=== PATIENT | male | born 1950 | race African-American/Black ===

== ENCOUNTER 2019-12-10 14:59 | Inpatient (IN) ==
[2019-12-10 15:21] VITALS: BMI 30.2
--- NOTE | 2019-12-10 15:44 | DR.EXTPAIN ---
HPI Time seen Time Seen by Provider: 12/10/19 15:41 PCP Primary Care Physician: SHENA HPI Comment HPI Comment: Patient sent from alf for cellulitis of right elbow. Facility physician states that he has been treating the infection with IM Rocephin and despite this, wound has enlarged. Patient denies any open cut that led to infection, states that it spontaneously occurred 4-5 days ago. Notes that there had been purulent drainage from the area. Complaint/Symptoms Chief Complaint:: PT IS NOTED TO HAVE RT ELBOW CELLULITIS. PT STATES HE NOTED TO HAVE A BUMP ON IT AND IT BEGAN TO SWELL. NURSE PRACTIONER HAS GIVEN ANTIBIOTICS IM ROCEPHIN OVER THE PAST 4 DAYS. COVID-19 Coronavirus risk:travel/contact w/high risk person: No Has patient experienced Coronavirus symptoms: No Source History Provided: Patient Mode of arrival Mode of Arrival: Wheelchair Timing Onset of Chief Complaint: 12/06/19 PMH PMH Past Medical History: Yes Past Medical History: Asthma, COPD, Diabetes and Hypertension Past Surgical History: Yes Surgical History: Angioplasty/Stents Family History History of Family Medical Conditions: No Social History Does any household member use tobacco: No Alcohol Use: None Do you use any recreational Drugs:: No Lives With: Other Travel Risk Coronavirus risk:travel/contact w/high risk person: No Has patient experienced Coronavirus symptoms: No Infectious screening In the last 2 months have you had wt loss of >10#?: NO Have you had fever, night sweats or hemotysis?: No Have you traveled outside the country in the last 6 months?: No Isolation: Standard ROS Review of Systems Musculoskeletal: Joint Swelling, Right and Elbow Integumentary: Change in Color (redness) and Wound All Other Systems: Reviewed and Negative PE Vital Signs Vitals: Pulse Rate 82 Respiratory Rate 18 Blood Pressure 126/67 O2 Sat by Pulse Oximetry 98 General Limitations: No Limitations Head Head Exam: Normal Inspection, Atraumatic and Normocephalic Eyes Eye exam: Normal Appearance and EOMI Chest Chest Inspection: Normal Inspection and Symmetric Chest Wall Rise Cardiovascular Cardiovascular Exam: Regular Rate, Normal Rhythm and Normal Heart Sounds Abdominal Exam Abdominal Exam: Normal Inspection, Normal Bowel Sounds and Soft Extremities Extremities Exam: Tenderness, Edema and Joint Swelling Upper Extremities Elbow Exam: Tenderness and Erythema Neurological Neurological Exam: Alert and Oriented X3 Psychiatric Psychiatric Exam: Normal Affect and Normal Mood Skin Skin Exam: Warm, Dry and Erythema (right elbow) COURSE Treatment Treatment: Spoke with Dr. Bergman who has accepted patient for admission. Patient has failed outpatient antibiotic therapy. ROR Labs Reviewed Result Diagrams: 12/10/19 16:05 12/10/19 15:44 Laboratory: WBC 3.5 X10^3/uL (3.6-10.0) L 12/10/19 16:05 RBC 3.56 X10^6/uL (4.7-6.0) L 12/10/19 16:05 Hgb 10.4 g/dL (13.5-18.0) L 12/10/19 16:05 Hct 30.7 % (42.0-54.0) L 12/10/19 16:05 MCV 86.1 fL (80.0-100.0) 12/10/19 16:05 MCH 29.1 pg (27.0-34.0) 12/10/19 16:05 MCHC 33.9 g/dL (33.0-35.0) 12/10/19 16:05 RDW 16.5 % (11.6-16.5) 12/10/19 16:05 Plt Count 230 X10^3/uL (150.0-450.0) 12/10/19 16:05 Plt Count Comment Adequate (ADEQUATE) 12/10/19 16:05 MPV 10.3 fL (7.4-11.0) 12/10/19 16:05 Neut % (Auto) 36.8 % (42.0-75.0) L 12/10/19 16:05 Lymph % (Auto) 48.7 % (21.0-51.0) 12/10/19 16:05 [place] % (Auto) 13.2 % (0.0-13.0) H 12/10/19 16:05 Eos % (Auto) 0.6 % (0.9-2.9) L 12/10/19 16:05 Baso % (Auto) 0.7 % (0.2-1.0) 12/10/19 16:05 Neut # (Auto) 1.3 x10^3/uL (2.2-4.8) L 12/10/19 16:05 Lymph # (Auto) 1.7 X10^3/uL (1.3-2.9) 12/10/19 16:05 [place] # (Auto) 0.5 x10^3/uL (0.3-0.8) 12/10/19 16:05 Eos # (Auto) 0.0 x10^3/uL (0.0-0.2) 12/10/19 16:05 Baso # (Auto) 0.0 X10^3/uL (0.0-0.1) 12/10/19 16:05 Absolute Nucleated RBC 0.0 /100WBC 12/10/19 16:05 Total Counted 50 12/10/19 16:05 Neutrophils % (Manual) 34 % (39-76) L 12/10/19 16:05 Lymphocytes % (Manual) 48 % (13-43) H 12/10/19 16:05 Monocytes % (Manual) 18 % (4-9) H 12/10/19 16:05 Plt Morphology Comment Normal (NORMAL) 12/10/19 16:05 RBC Morphology Abnormal (NORMAL) 12/10/19 16:05 Hypochromasia Slight A 12/10/19 16:05 Anisocytosis 1+ A 12/10/19 16:05 Sodium 135 mmol/L (136-145) L 12/10/19 15:44 Corrected Sodium 136 mmol/L (136-145) 12/10/19 15:44 Potassium 4.8 mmol/L (3.5-5.1) 12/10/19 15:44 Chloride 102 mmol/L (98-107) 12/10/19 15:44 Carbon Dioxide 27.1 mmol/L (21-32) 12/10/19 15:44 BUN 21 mg/dL (7-18) H 12/10/19 15:44 Creatinine 1.71 mg/dL (0.70-1.30) H 12/10/19 15:44 Est GFR (MDRD) Af Amer 51 (>60) L 12/10/19 15:44 Est GFR (MDRD) Non-Af 43 (>60) L 12/10/19 15:44 Glucose 141 mg/dL (65-99) H 12/10/19 15:44 Calcium 9.5 mg/dL (8.5-10.1) 12/10/19 15:44 Corrected Calcium TNP 12/10/19 15:44 Total Bilirubin 0.30 mg/dL (0.2-1.0) 12/10/19 15:44 AST 33 Units/L (15-37) 12/10/19 15:44 ALT 40 Units/L (12-78) 12/10/19 15:44 Alkaline Phosphatase 143 Units/L (46-116) H 12/10/19 15:44 Total Protein 9.9 g/dL (6.4-8.2) H 12/10/19 15:44 Albumin 3.7 g/dL (3.4-5.0) 12/10/19 15:44 Globulin 6.2 g/dL (2.5-4.5) H 12/10/19 15:44 Albumin/Globulin Ratio 0.6 Ratio (1.1-2.1) L 12/10/19 15:44 Other Results Comments: HISTORY CELLULITIS, PAIN HX- ASTHMA, COPD, HTN, DM. SX- STENTS STUDY ELBOW, RIGHT COMPARISON FINDINGS No acute cortical disruption or dislocation is identified. No significant joint space effusion can be seen. The radial head is unremarkable in its appearance. There is a moderate-sized olecranon spur. Soft tissue swelling is seen over the dorsal aspect of the distal humerus and the dorsal aspect of the proximal ulna IMPRESSION Negative exam other than moderate-sized olecranon spur. There is soft tissue swelling over the dorsal aspect of the elbow. Electronically signed by: YUMI INTERIANO (Dec 10, 2019 16:23:41) Opioid Opioid Risk Tool Age (Brian box if 16-45): No History of Preadolescent Sexual Abuse: No Total: 0 Total Score Risk Category: Low Risk Copyright: Cam PASCAL predicting aberrant behaviors
[2019-12-10 16:18] LABS: BASOPHILS % (AUTO) 0.7 % (0.2-1.0); EOSINOPHILS % (AUTO) 0.6 % (0.9-2.9); HEMATOCRIT 30.7 % (42.0-54.0); HEMOGLOBIN 10.4 g/dL (13.5-18.0); LYMPHOCYTES # (AUTO) 1.7 X10^3/uL (1.3-2.9); LYMPHOCYTES % (AUTO) 48.7 % (21.0-51.0); MEAN CORPUSCULAR HEMOGLOBIN 29.1 pg (27.0-34.0); MEAN CORPUSCULAR HGB CONC 33.9 g/dL (33.0-35.0); MEAN CORPUSCULAR VOLUME 86.1 fL (80.0-100.0); MEAN PLATELET VOLUME 10.3 fL (7.4-11.0); MONOCYTES # (AUTO) 0.5 x10^3/uL (0.3-0.8); MONOCYTES % (AUTO) 13.2 % (0.0-13.0); NEUTROPHILS # (AUTO) 1.3 x10^3/uL (2.2-4.8); NEUTROPHILS % (AUTO) 36.8 % (42.0-75.0); PLATELET COUNT 230 X10^3/uL (150.0-450.0); RED BLOOD COUNT 3.56 X10^6/uL (4.7-6.0); RED CELL DISTRIBUTION WIDTH 16.5 % (11.6-16.5); WHITE BLOOD COUNT 3.5 X10^3/uL (3.6-10.0)
--- NOTE | 2019-12-10 16:24 | RAD ---
HISTORYCELLULITIS, PAIN HX- ASTHMA, COPD, HTN, DM. SX- STENTSSTUDYELBOW, RIGHTCOMPARISONFINDINGSNo acute cortical disruption or dislocation is identified. No significant joint space effusion can be seen. The radial head is unremarkable in its appearance. There is a moderate-sized olecranon spur. Soft tissue swelling is seen over the dorsal aspect of the distal humerus and the dorsal aspect of the proximal ulnaIMPRESSIONNegative exam other than moderate-sized olecranon spur.There is soft tissue swelling over the dorsal aspect of the elbow.Electronically signed by: YUMI INTERIANO (Dec 10, 2019 16:23:41)
[2019-12-10 16:29] LABS: ALANINE AMINOTRANSFERASE 40 Units/L (12-78); ALBUMIN 3.7 g/dL (3.4-5.0); ALKALINE PHOSPHATASE 143 Units/L (46-116); ASPARTATE AMINO TRANSFERASE 33 Units/L (15-37); BLOOD UREA NITROGEN 21 mg/dL (7-18); CALCIUM 9.5 mg/dL (8.5-10.1); CARBON DIOXIDE 27.1 mmol/L (21-32); CHLORIDE 102 mmol/L (98-107); COR NA(FOR HYPERGLY) 136 mmol/L (136-145); CREATININE 1.71 mg/dL (0.70-1.30); SODIUM 135 mmol/L (136-145); TOTAL PROTEIN 9.9 g/dL (6.4-8.2); eGFR NON BLACK RACES 43 (>60)
[2019-12-10 17:03] LABS: ANISOCYTOSIS 1+; HYPOCHROMASIA SLIGHT; PLATELET MORPHOLOGY COMMENT NORMAL (NORMAL)
[2019-12-10] MEDS ORDERED: MORPHINE SULFATE INJ 2 MG INJ ONE (18:01)
[2019-12-10] MEDS ORDERED: NS 100 ML IV + SPIKE MINIBAG* 100 ML IV ONE (18:01)
[2019-12-10] MEDS ORDERED: ZOSYN VIAL 4.5 GRAMS IV ONE (18:01)
[2019-12-10] MEDS: ZOSYN VIAL 4.5 GRAMS 4.5 G in NS 100 ML IV + SPIKE MINIBAG* 100 ML IV ONE ×2 (18:06→18:17)
[2019-12-10] MEDS: MORPHINE SULFATE INJ 2 MG INJ IVP PRN ×2 (18:07→18:15)
[2019-12-10] MEDS ORDERED: NS 1000 ML 1,000 ML ONE (18:07)
[2019-12-10] MEDS: ZOSYN VIAL 4.5 GRAMS 4.5 G in NS 100 ML IV + SPIKE MINIBAG* 100 ML IV SCH ×2 (18:43→22:42)
[2019-12-10] MEDS: NS 1000 ML 1,000 ML IV SCH (22:41)
[2019-12-10] MEDS ORDERED: MILK OF MAGNESIA PO PRN (23:19)
[2019-12-10] MEDS ORDERED: COLACE CAP 100 MG PO PRN (23:19)
[2019-12-10] MEDS ORDERED: COLACE CAP 100 MG PO ONE (23:32)
[2019-12-11] MEDS: LIPITOR TAB 40 MG PO SCH (00:22)
[2019-12-11] MEDS: NS 1000 ML 1,000 ML IV SCH ×3 (05:03→22:24)
[2019-12-11] MEDS: ZOSYN VIAL 4.5 GRAMS 4.5 G in NS 100 ML IV + SPIKE MINIBAG* 100 ML IV SCH (05:04)
[2019-12-11 06:25] LABS: BASOPHILS % (AUTO) 0.9 % (0.2-1.0); EOSINOPHILS % (AUTO) 0.7 % (0.9-2.9); HEMATOCRIT 28.3 % (42.0-54.0); HEMOGLOBIN 9.7 g/dL (13.5-18.0); LYMPHOCYTES # (AUTO) 1.5 X10^3/uL (1.3-2.9); LYMPHOCYTES % (AUTO) 46.5 % (21.0-51.0); MEAN CORPUSCULAR HEMOGLOBIN 29.3 pg (27.0-34.0); MEAN CORPUSCULAR HGB CONC 34.2 g/dL (33.0-35.0); MEAN CORPUSCULAR VOLUME 85.6 fL (80.0-100.0); MEAN PLATELET VOLUME 10.2 fL (7.4-11.0); MONOCYTES # (AUTO) 0.6 x10^3/uL (0.3-0.8); MONOCYTES % (AUTO) 18.5 % (0.0-13.0); NEUTROPHILS # (AUTO) 1.1 x10^3/uL (2.2-4.8); NEUTROPHILS % (AUTO) 33.4 % (42.0-75.0); PLATELET COUNT 200 X10^3/uL (150.0-450.0); RED BLOOD COUNT 3.31 X10^6/uL (4.7-6.0); RED CELL DISTRIBUTION WIDTH 16.2 % (11.6-16.5); WHITE BLOOD COUNT 3.3 X10^3/uL (3.6-10.0)
[2019-12-11 06:47] LABS: ALANINE AMINOTRANSFERASE 44 Units/L (12-78); ALBUMIN 3.1 g/dL (3.4-5.0); ALKALINE PHOSPHATASE 142 Units/L (46-116); ASPARTATE AMINO TRANSFERASE 33 Units/L (15-37); BLOOD UREA NITROGEN 15 mg/dL (7-18); CALCIUM 8.7 mg/dL (8.5-10.1); CARBON DIOXIDE 24.2 mmol/L (21-32); CHLORIDE 102 mmol/L (98-107); COR CA(FOR HYPOALB) 9.4 mg/dL (8.5-10.1); COR NA(FOR HYPERGLY) 136 mmol/L (136-145); CREATININE 1.33 mg/dL (0.70-1.30); SODIUM 134 mmol/L (136-145); TOTAL PROTEIN 8.7 g/dL (6.4-8.2); eGFR NON BLACK RACES 57 (>60)
[2019-12-11] MEDS ORDERED: HumuLIN R SC PRN (07:51)
[2019-12-11] MEDS ORDERED: IMDUR PO ONE (08:16)
[2019-12-11] MEDS ORDERED: PLAVIX ONE (08:16)
[2019-12-11] MEDS ORDERED: APRESOLINE TAB 25 MG ONE (08:16)
[2019-12-11] MEDS ORDERED: ASPIRIN 81 MG CHEWTAB ONE (08:16)
[2019-12-11] MEDS: HumuLIN 70/30 (NovoLIN 70/30) SC SCH ×2 (08:30→21:21)
[2019-12-11] MEDS: PLAVIX PO SCH (08:30)
[2019-12-11] MEDS: IMDUR PO SCH (08:30)
[2019-12-11] MEDS: ASPIRIN 81 MG CHEWTAB PO SCH (08:30)
[2019-12-11] MEDS: APRESOLINE TAB 25 MG PO SCH ×2 (08:30→21:20)
[2019-12-11] MEDS ORDERED: HumuLIN 70/30 (NovoLIN 70/30) SC SCH (09:00)
[2019-12-11] MEDS ORDERED: PHARMACY CONSULT - VANCOMYCIN XX SCH (10:00)
[2019-12-11] MEDS: VANCOMYCIN HCL VIAL 1.25 G 1.25 G in NS 250 ML IV 250 ML IV SCH ×2 (11:09→21:23)
--- NOTE | 2019-12-11 11:48 | DR.H&P ---
H&P History & Physical for Day of: H&P Date: 12/11/19 Chief Complaint Chief Complaint: right elbow swelling and redness Allergies Allergies Allergy/AdvReac Type Severity Reaction Status Date / Time Tetracyclines AdvReac Verified 12/10/19 15:36 History of Present Illness History of Present Illness: Mr. Ford is a 69y/o male with a PMH of MRSA skin infections, CAD s/p PCI in 2011, DM presented with right elbow swelling and drainage. Patient states it started with a small area of redness on his elbow a week ago. It started to get large with more pain and swelling. He noticed drainage over the weekend. He did see a doctor in retirement and was given Rocephin IM x 2 and oral antibiotics but the redness and drainage kept getting worse so he was brought to the ED. He denies any trauma or injury to the arm. Denies fever or chills. ED work up - Elbow XR: soft tissue swelling noted - Labs: WBC 3.3 Hgb: 9.7 Cr: 1.71 down to 1.33 Patient was started on IV zosyn, cultures were obtained Plan: Rod add Vanc due to hx of MRSA, continue Zosyn. Follow wound and blood cultures. Resume home medications. Continue gentle hydration. Consult Dr. Lopez to eval if he needs I&D. Past Medical History Past Medical History: Asthma, COPD, Diabetes and Hypertension Past Surgical History Surgical History: Angioplasty/Stents and Ortho Surgery Family History Family Medical History: Diabetes Mellitus, [place], Coronary Artery Disease, Heart Failure and Hypertension Social History Does patient currently use any type of tobacco product: No Have you used tobacco products in the last 12 months: No Type of Tobacco Use: None Does any household member use tobacco: No Alcohol Use: None Drug Use: None Prescription drug monitoring program results: PDMP reviewed and no concerns identified Medications Home Medications: Tetracyclines Adverse Reaction (Verified 12/10/19 15:36) CONTINUE taking the following medications amitriptyline 50 mg PO QHS 12/10/19 [History] aspirin 81 mg PO DAILY 12/10/19 [History] atorvastatin [Lipitor] 40 mg PO QHS 12/10/19 [History] carvedilol [Coreg] 25 mg PO BID 12/10/19 [History] clopidogrel [Plavix] 75 mg PO DAILY 12/10/19 [History] hydralazine 50 mg PO BID 12/10/19 [History] insulin NPH and regular human [Novolin 70/30 U-100 Insulin] 24 unit SUBCUT BID 12/10/19 [History] insulin regular human [Novolin R Regular U-100 Insuln] 1 sliding scale dose SUBCUT USEASDIRECTD 12/10/19 [History] isosorbide mononitrate 30 mg PO QAM 12/10/19 [History] levalbuterol tartrate [Xopenex HFA] 2 inh INHALATION Q6H 12/10/19 [History] loratadine [Claritin] 10 mg PO DAILY 12/10/19 [History] losartan [Cozaar] 50 mg PO BID 12/10/19 [History] nitroglycerin 0.4 mg SUBLINGUAL Q5M PRN 12/10/19 [History] sulfamethoxazole-trimethoprim [Bactrim DS] 1 tab PO BID 12/10/19 [History] terazosin 2 mg PO QHS 12/10/19 [History] triamcinolone acetonide 1 applic TOPICAL BID PRN 12/10/19 [History] Labs Result Diagrams: 12/11/19 05:50 12/11/19 05:50 Labs: Laboratory WBC 3.3 X10^3/uL (3.6-10.0) L 12/11/19 05:50 RBC 3.31 X10^6/uL (4.7-6.0) L 12/11/19 05:50 Hgb 9.7 g/dL (13.5-18.0) L 12/11/19 05:50 Hct 28.3 % (42.0-54.0) L 12/11/19 05:50 MCV 85.6 fL (80.0-100.0) 12/11/19 05:50 MCH 29.3 pg (27.0-34.0) 12/11/19 05:50 MCHC 34.2 g/dL (33.0-35.0) 12/11/19 05:50 RDW 16.2 % (11.6-16.5) 12/11/19 05:50 Plt Count 200 X10^3/uL (150.0-450.0) 12/11/19 05:50 Plt Count Comment Adequate (ADEQUATE) 12/10/19 16:05 MPV 10.2 fL (7.4-11.0) 12/11/19 05:50 Neut % (Auto) 33.4 % (42.0-75.0) L 12/11/19 05:50 Lymph % (Auto) 46.5 % (21.0-51.0) 12/11/19 05:50 [place] % (Auto) 18.5 % (0.0-13.0) H 12/11/19 05:50 Eos % (Auto) 0.7 % (0.9-2.9) L 12/11/19 05:50 Baso % (Auto) 0.9 % (0.2-1.0) 12/11/19 05:50 Neut # (Auto) 1.1 x10^3/uL (2.2-4.8) L 12/11/19 05:50 Lymph # (Auto) 1.5 X10^3/uL (1.3-2.9) 12/11/19 05:50 [place] # (Auto) 0.6 x10^3/uL (0.3-0.8) 12/11/19 05:50 Eos # (Auto) 0.0 x10^3/uL (0.0-0.2) 12/11/19 05:50 Baso # (Auto) 0.0 X10^3/uL (0.0-0.1) 12/11/19 05:50 Absolute Nucleated RBC 0.1 /100WBC 12/11/19 05:50 Total Counted 50 12/10/19 16:05 Neutrophils % (Manual) 34 % (39-76) L 12/10/19 16:05 Lymphocytes % (Manual) 48 % (13-43) H 12/10/19 16:05 Monocytes % (Manual) 18 % (4-9) H 12/10/19 16:05 Plt Morphology Comment Normal (NORMAL) 12/10/19 16:05 RBC Morphology Abnormal (NORMAL) 12/10/19 16:05 Hypochromasia Slight A 12/10/19 16:05 Anisocytosis 1+ A 12/10/19 16:05 Sodium 134 mmol/L (136-145) L 12/11/19 05:50 Corrected Sodium 136 mmol/L (136-145) 12/11/19 05:50 Potassium 4.1 mmol/L (3.5-5.1) 12/11/19 05:50 Chloride 102 mmol/L (98-107) 12/11/19 05:50 Carbon Dioxide 24.2 mmol/L (21-32) 12/11/19 05:50 BUN 15 mg/dL (7-18) 12/11/19 05:50 Creatinine 1.33 mg/dL (0.70-1.30) H 12/11/19 05:50 Est GFR (MDRD) Af Amer > 60 (>60) 12/11/19 05:50 Est GFR (MDRD) Non-Af 57 (>60) L 12/11/19 05:50 Glucose 189 mg/dL (65-99) H 12/11/19 05:50 POC Glucose (mg/dL) 94 mg/dL (65-99) 12/11/19 11:28 Calcium 8.7 mg/dL (8.5-10.1) 12/11/19 05:50 Corrected Calcium 9.4 mg/dL (8.5-10.1) 12/11/19 05:50 Total Bilirubin 0.20 mg/dL (0.2-1.0) 12/11/19 05:50 AST 33 Units/L (15-37) 12/11/19 05:50 ALT 44 Units/L (12-78) 12/11/19 05:50 Alkaline Phosphatase 142 Units/L (46-116) H 12/11/19 05:50 Total Protein 8.7 g/dL (6.4-8.2) H 12/11/19 05:50 Albumin 3.1 g/dL (3.4-5.0) L 12/11/19 05:50 Globulin 5.6 g/dL (2.5-4.5) H 12/11/19 05:50 Albumin/Globulin Ratio 0.6 Ratio (1.1-2.1) L 12/11/19 05:50 Review of Systems Constitutional: denies Fever, Sweats and Weakness Eyes: No Symptoms Reported ENT: No Symptoms Reported Respiratory: No Symptoms Reported Cardiovascular: No Symptoms Reported Gastrointestinal: No Symptoms Reported Genitourinary: No Symptoms Reported Musculoskeletal: Arm Pain Skin: Wound Neurological: No Symptoms Reported Physical Exam Vital Signs: Temperature 98.6 F Pulse Rate [Right Radial] 90 Pulse Rate 82 Respiratory Rate 18 Blood Pressure [Left Arm] 170/85 Blood Pressure 126/67 O2 Sat by Pulse Oximetry 97 Oriented: Normal Eyes: Normal Ear: Normal Nose: Normal Respiratory: Clear Throughout Cardiovascular: Normal Auscultation: Bowel Sounds: Normal Palpation: Normal Tenderness: Normal Skin: Red, Tender, Wound and Other (right elbow swelling with mild erythema noted, tenderness present. no drainage noted, does not appear to be fluctuant ) Musculoskeletal: Right and Arm Mood Description: Calm Affect: Normal Speech Pattern: Clear and Appropriate Assessment/Plan (1) Right elbow pain: Status: Acute (2) Cellulitis: Qualifiers: Laterality: right Site of cellulitis: extremity Site of cellulitis of extremity: upper extremity Qualified Code(s): L03.113 - Cellulitis of right upper limb Status: Acute (3) CAD (coronary artery disease): Qualifiers: Associated angina: with unspecified angina Coronary Disease-Associated Artery/Lesion type: unspecified vessel or lesion type [place] vs. transplanted heart: unspecified whether [place] or transplanted heart Qualified Code(s): I25.119 - Atherosclerotic heart disease of [place] coronary artery with unspecified angina pectoris Status: Acute (4) Diabetes: Qualifiers: Diabetes mellitus complication status: without complication Diabetes mellitus care home insulin use: with termite inspector use Diabetes mellitus type: type 2 Qualified Code(s): E11.9 - Type 2 diabetes mellitus without complications; Z79.4 - long term care social worker (current) use of insulin Status: Acute (5) HTN (hypertension): Qualifiers: Hypertension type: essential hypertension Qualified Code(s): I10 - Essential (primary) hypertension Status: Acute Review H&P Reviewed: Yes Patient was examined?: Yes
[2019-12-11] MEDS: ZOSYN VIAL 3.375 GRAMS 3.375 G in NS 100 ML IV + SPIKE MINIBAG* 100 ML IV SCH ×3 (12:14→22:24)
[2019-12-11] MEDS: SNACK - Diabetic Appropriate PO SCH (20:46)
[2019-12-11] MEDS: ELAVIL PO SCH (21:21)
[2019-12-11] MEDS: HYTRIN PO SCH (21:22)
[2019-12-12] MEDS: HYTRIN PO SCH ×2 (00:22→21:36)
[2019-12-12 06:19] LABS: BASOPHILS % (AUTO) 0.6 % (0.2-1.0); EOSINOPHILS % (AUTO) 0.8 % (0.9-2.9); HEMATOCRIT 29.6 % (42.0-54.0); LYMPHOCYTES # (AUTO) 1.6 X10^3/uL (1.3-2.9); LYMPHOCYTES % (AUTO) 49.5 % (21.0-51.0); MEAN CORPUSCULAR HEMOGLOBIN 29.5 pg (27.0-34.0); MEAN CORPUSCULAR HGB CONC 33.9 g/dL (33.0-35.0); MEAN CORPUSCULAR VOLUME 87.1 fL (80.0-100.0); MEAN PLATELET VOLUME 10.6 fL (7.4-11.0); MONOCYTES # (AUTO) 0.5 x10^3/uL (0.3-0.8); MONOCYTES % (AUTO) 15.2 % (0.0-13.0); NEUTROPHILS # (AUTO) 1.1 x10^3/uL (2.2-4.8); NEUTROPHILS % (AUTO) 33.9 % (42.0-75.0); PLATELET COUNT 218 X10^3/uL (150.0-450.0); RED CELL DISTRIBUTION WIDTH 16.7 % (11.6-16.5); WHITE BLOOD COUNT 3.3 X10^3/uL (3.6-10.0)
[2019-12-12 06:30] LABS: BLOOD UREA NITROGEN 10 mg/dL (7-18); CALCIUM 8.7 mg/dL (8.5-10.1); CARBON DIOXIDE 23.9 mmol/L (21-32); CHLORIDE 104 mmol/L (98-107); COR NA(FOR HYPERGLY) 140 mmol/L (136-145); CREATININE 1.23 mg/dL (0.70-1.30); SODIUM 138 mmol/L (136-145); eGFR NON BLACK RACES > 60 (>60)
[2019-12-12] MEDS: NS 1000 ML 1,000 ML IV SCH ×3 (06:49→22:47)
[2019-12-12] MEDS: ZOSYN VIAL 3.375 GRAMS 3.375 G in NS 100 ML IV + SPIKE MINIBAG* 100 ML IV SCH ×3 (06:49→21:39)
[2019-12-12] MEDS: APRESOLINE TAB 25 MG PO SCH ×2 (09:12→21:34)
[2019-12-12] MEDS: ASPIRIN 81 MG CHEWTAB PO SCH (09:12)
[2019-12-12] MEDS: IMDUR PO SCH (09:13)
[2019-12-12] MEDS: VANCOMYCIN HCL VIAL 1.25 G 1.25 G in NS 250 ML IV 250 ML IV SCH ×2 (09:14→21:44)
[2019-12-12] MEDS: HumuLIN 70/30 (NovoLIN 70/30) SC SCH ×2 (09:20→21:42)
[2019-12-12] MEDS: PLAVIX PO SCH (09:21)
--- NOTE | 2019-12-12 09:51 | PCM.PROG ---
Progress Note Progress Note for Day of Date of Exam: 12/12/19 Subjective Subjective: Patient seen at bedside, no overnight events noted. Patient states his elbow is slightly better, no drainage noted yesterday, redness is improving. Denies fever or chills, no N/V/D or abdominal pain. Patient was seen by Dr. Lopez yesterday, no need for I&D as most of it has drained already and he recommended to continue IV abx. Labs: WBC 3.3 Hgb 10 BUN/Cr: 12/18. Wounc Cx prelim Coag positive staph Plan: continue IV abx, monitor AM labs, resume home medications as renal function improved. Possible discharge tomorrow if elbow continues to improve. Past Medical Family Social History Past Med/Fam/Surg Hx: No changes since H&P Allergies: Allergies Tetracyclines Adverse Reaction (Verified 12/10/19 15:36) Review of Systems ROS: No change since H&P Vital Signs and I&O's Vital Signs: Temperature 98.0 F Pulse Rate [Right Radial] 94 Pulse Rate 82 Respiratory Rate 18 Blood Pressure [Right Arm] 182/86 Blood Pressure [Left Arm] 155/77 Blood Pressure 126/67 O2 Sat by Pulse Oximetry 96 Intake and Output: Intake & Output 12/09/19 12/10/19 12/11/19 12/12/19 23:59 23:59 23:59 23:59 Intake Total 500 / 500 2600 / 2600 750 / 750 Output Total 2000 / 2000 1200 / 1200 Balance 500 / 500 600 / 600 -450 / -450 Physical Exam Oriented: Normal Eyes: Normal Ear: Normal Nose: Normal Respiratory: Normal Cardiovascular: Normal Auscultation: Bowel Sounds: Normal Tenderness: Normal Skin: Red, Tender, Wound and Other (right elbow swelling with mild erythema improved, slight tenderness present. no drainage noted) Musculoskeletal: Right and Arm Mood Description: Calm Affect: Normal Speech Pattern: Clear and Appropriate Laboratory and Diagnostics Result Diagrams: 12/12/19 05:20 12/12/19 05:20 Labs: 12/11/19 01:38 Arm - Right Gram Stain - Final 12/11/19 01:38 Arm - Right Wound Culture - Preliminary Laboratory WBC 3.3 X10^3/uL (3.6-10.0) L 12/12/19 05:20 RBC 3.40 X10^6/uL (4.7-6.0) L 12/12/19 05:20 Hgb 10.0 g/dL (13.5-18.0) L 12/12/19 05:20 Hct 29.6 % (42.0-54.0) L 12/12/19 05:20 MCV 87.1 fL (80.0-100.0) 12/12/19 05:20 MCH 29.5 pg (27.0-34.0) 12/12/19 05:20 MCHC 33.9 g/dL (33.0-35.0) 12/12/19 05:20 RDW 16.7 % (11.6-16.5) H 12/12/19 05:20 Plt Count 218 X10^3/uL (150.0-450.0) 12/12/19 05:20 Plt Count Comment Adequate (ADEQUATE) 12/10/19 16:05 MPV 10.6 fL (7.4-11.0) 12/12/19 05:20 Neut % (Auto) 33.9 % (42.0-75.0) L 12/12/19 05:20 Lymph % (Auto) 49.5 % (21.0-51.0) 12/12/19 05:20 [place] % (Auto) 15.2 % (0.0-13.0) H 12/12/19 05:20 Eos % (Auto) 0.8 % (0.9-2.9) L 12/12/19 05:20 Baso % (Auto) 0.6 % (0.2-1.0) 12/12/19 05:20 Neut # (Auto) 1.1 x10^3/uL (2.2-4.8) L 12/12/19 05:20 Lymph # (Auto) 1.6 X10^3/uL (1.3-2.9) 12/12/19 05:20 [place] # (Auto) 0.5 x10^3/uL (0.3-0.8) 12/12/19 05:20 Eos # (Auto) 0.0 x10^3/uL (0.0-0.2) 12/12/19 05:20 Baso # (Auto) 0.0 X10^3/uL (0.0-0.1) 12/12/19 05:20 Absolute Nucleated RBC 0.4 /100WBC 12/12/19 05:20 Total Counted 50 12/10/19 16:05 Neutrophils % (Manual) 34 % (39-76) L 12/10/19 16:05 Lymphocytes % (Manual) 48 % (13-43) H 12/10/19 16:05 Monocytes % (Manual) 18 % (4-9) H 12/10/19 16:05 Plt Morphology Comment Normal (NORMAL) 12/10/19 16:05 RBC Morphology Abnormal (NORMAL) 12/10/19 16:05 Hypochromasia Slight A 12/10/19 16:05 Anisocytosis 1+ A 12/10/19 16:05 Sodium 138 mmol/L (136-145) 12/12/19 05:20 Corrected Sodium 140 mmol/L (136-145) 12/12/19 05:20 Potassium 3.9 mmol/L (3.5-5.1) 12/12/19 05:20 Chloride 104 mmol/L (98-107) 12/12/19 05:20 Carbon Dioxide 23.9 mmol/L (21-32) 12/12/19 05:20 BUN 10 mg/dL (7-18) 12/12/19 05:20 Creatinine 1.23 mg/dL (0.70-1.30) 12/12/19 05:20 Est GFR (MDRD) Af Amer > 60 (>60) 12/12/19 05:20 Est GFR (MDRD) Non-Af > 60 (>60) 12/12/19 05:20 Glucose 163 mg/dL (65-99) H 12/12/19 05:20 POC Glucose (mg/dL) 141 mg/dL (65-99) H 12/11/19 20:38 Calcium 8.7 mg/dL (8.5-10.1) 12/12/19 05:20 Corrected Calcium 9.4 mg/dL (8.5-10.1) 12/11/19 05:50 Total Bilirubin 0.20 mg/dL (0.2-1.0) 12/11/19 05:50 AST 33 Units/L (15-37) 12/11/19 05:50 ALT 44 Units/L (12-78) 12/11/19 05:50 Alkaline Phosphatase 142 Units/L (46-116) H 12/11/19 05:50 Total Protein 8.7 g/dL (6.4-8.2) H 12/11/19 05:50 Albumin 3.1 g/dL (3.4-5.0) L 12/11/19 05:50 Globulin 5.6 g/dL (2.5-4.5) H 12/11/19 05:50 Albumin/Globulin Ratio 0.6 Ratio (1.1-2.1) L 12/11/19 05:50 Plan (1) Right elbow pain: Status: Acute (2) Cellulitis: Status: Acute Qualifiers: Laterality: right Site of cellulitis: extremity Site of cellulitis of extremity: upper extremity Qualified Code(s): L03.113 - Cellulitis of right upper limb (3) CAD (coronary artery disease): Status: Acute Qualifiers: Associated angina: with unspecified angina Coronary Disease-Associated Artery/Lesion type: unspecified vessel or lesion type [place] vs. transplanted heart: unspecified whether [place] or transplanted heart Qualified Code(s): I25.119 - Atherosclerotic heart disease of [place] coronary artery with unspecified angina pectoris (4) Diabetes: Status: Acute Qualifiers: Diabetes mellitus complication status: without complication Diabetes mellitus custodial insulin use: with custodial use Diabetes mellitus type: type 2 Qualified Code(s): E11.9 - Type 2 diabetes mellitus without complications; Z79.4 - snf (current) use of insulin (5) HTN (hypertension): Status: Acute Qualifiers: Hypertension type: essential hypertension Qualified Code(s): I10 - Essential (primary) hypertension
[2019-12-12] MEDS ORDERED: COREG TAB 25 MG ONE (12:25)
[2019-12-12] MEDS: COREG TAB 25 MG PO SCH ×2 (12:25→21:35)
[2019-12-12] MEDS ORDERED: PHARMACY COMMENT IV NR (20:30)
[2019-12-12] MEDS ORDERED: PHARMACY CONSULT - VANCOMYCIN XX SCH (21:00)
[2019-12-12 21:25] LABS: CREATININE 1.44 mg/dL (0.70-1.30); VANCOMYCIN,TROUGH 15.1 ug/mL (15-20)
[2019-12-12] MEDS: SNACK - Diabetic Appropriate PO SCH (21:31)
[2019-12-12] MEDS: ELAVIL PO SCH (21:33)
[2019-12-12] MEDS: LIPITOR TAB 40 MG PO SCH (21:36)
[2019-12-13] MEDS: ZOSYN VIAL 3.375 GRAMS 3.375 G in NS 100 ML IV + SPIKE MINIBAG* 100 ML IV SCH (05:17)
[2019-12-13] MEDS: NS 1000 ML 1,000 ML IV SCH (05:17)
[2019-12-13 06:43] LABS: BASOPHILS % (AUTO) 1.1 % (0.2-1.0); EOSINOPHILS % (AUTO) 1.2 % (0.9-2.9); HEMATOCRIT 29.9 % (42.0-54.0); LYMPHOCYTES # (AUTO) 1.7 X10^3/uL (1.3-2.9); LYMPHOCYTES % (AUTO) 54.2 % (21.0-51.0); MEAN CORPUSCULAR HEMOGLOBIN 28.8 pg (27.0-34.0); MEAN CORPUSCULAR HGB CONC 33.3 g/dL (33.0-35.0); MEAN CORPUSCULAR VOLUME 86.5 fL (80.0-100.0); MEAN PLATELET VOLUME 10.2 fL (7.4-11.0); MONOCYTES # (AUTO) 0.4 x10^3/uL (0.3-0.8); MONOCYTES % (AUTO) 12.7 % (0.0-13.0); NEUTROPHILS % (AUTO) 30.8 % (42.0-75.0); PLATELET COUNT 224 X10^3/uL (150.0-450.0); RED BLOOD COUNT 3.46 X10^6/uL (4.7-6.0); RED CELL DISTRIBUTION WIDTH 16.9 % (11.6-16.5); WHITE BLOOD COUNT 3.2 X10^3/uL (3.6-10.0)
[2019-12-13 06:52] LABS: BLOOD UREA NITROGEN 9 mg/dL (7-18); CALCIUM 8.7 mg/dL (8.5-10.1); CARBON DIOXIDE 24.5 mmol/L (21-32); CHLORIDE 104 mmol/L (98-107); COR NA(FOR HYPERGLY) 139 mmol/L (136-145); CREATININE 1.22 mg/dL (0.70-1.30); SODIUM 138 mmol/L (136-145); eGFR NON BLACK RACES > 60 (>60)
[2019-12-13] MEDS: IMDUR PO SCH (08:39)
[2019-12-13] MEDS: ASPIRIN 81 MG CHEWTAB PO SCH (08:40)
[2019-12-13] MEDS: COREG TAB 25 MG PO SCH (08:40)
[2019-12-13] MEDS: PLAVIX PO SCH (08:40)
[2019-12-13] MEDS: APRESOLINE TAB 25 MG PO SCH (08:40)
[2019-12-13] MEDS: HumuLIN 70/30 (NovoLIN 70/30) SC SCH (08:41)
[2019-12-13] MEDS: VANCOMYCIN HCL VIAL 1.25 G 1.25 G in NS 250 ML IV 250 ML IV SCH (08:42)
--- NOTE | 2019-12-13 08:57 | W.DIS.FURT ---
Summary of Discharge Admission Diagnosis Patient Problems (Updated 12/11/19 @ 13:25 by Sonya Bergman) Right elbow pain (Acute) M25.521 HTN (hypertension) (Acute) I10 Diabetes (Acute) E11.9 CAD (coronary artery disease) (Acute) I25.10 Cellulitis (Acute) L03.90 Vital Signs: Vital Signs (72 hours) 12/10/19 15:02 12/10/19 18:07 12/10/19 18:15 Temperature Pulse Rate 82 Pulse Rate [Right Radial] Respiratory Rate 18 18 18 Blood Pressure 126/67 Blood Pressure [Left Arm] Blood Pressure [Right Arm] O2 Sat by Pulse Oximetry 98 12/10/19 18:27 12/10/19 18:45 12/10/19 20:00 Temperature 97.8 F Pulse Rate Pulse Rate [Right Radial] 92 H 87 Respiratory Rate 20 18 21 Blood Pressure Blood Pressure [Left Arm] 182/84 165/77 Blood Pressure [Right Arm] O2 Sat by Pulse Oximetry 96 98 12/11/19 00:00 12/11/19 04:00 12/11/19 08:00 Temperature 97.5 F L 97.1 F L 98.6 F Pulse Rate Pulse Rate [Right Radial] 87 84 90 Respiratory Rate 22 23 18 Blood Pressure Blood Pressure [Left Arm] 146/69 149/71 170/85 Blood Pressure [Right Arm] O2 Sat by Pulse Oximetry 98 96 97 12/11/19 12:00 12/11/19 16:00 12/11/19 20:00 Temperature 98.3 F 98.6 F 98 F Pulse Rate Pulse Rate [Right Radial] 66 83 85 Respiratory Rate 20 18 20 Blood Pressure Blood Pressure [Left Arm] 140/65 173/84 166/79 Blood Pressure [Right Arm] O2 Sat by Pulse Oximetry 96 96 99 12/12/19 00:00 12/12/19 04:00 12/12/19 08:00 Temperature 98.3 F 98.1 F 98.0 F Pulse Rate Pulse Rate [Right Radial] 96 H 90 94 H Respiratory Rate 21 18 18 Blood Pressure Blood Pressure [Left Arm] 186/83 155/77 Blood Pressure [Right Arm] 182/86 O2 Sat by Pulse Oximetry 98 98 96 12/12/19 12:00 12/12/19 16:00 12/12/19 20:00 Temperature 98.1 F 97.7 F 98.2 F Pulse Rate Pulse Rate [Right Radial] 82 82 82 Respiratory Rate 18 20 20 Blood Pressure Blood Pressure [Left Arm] 164/76 Blood Pressure [Right Arm] 167/88 162/76 O2 Sat by Pulse Oximetry 100 97 99 12/13/19 00:00 12/13/19 04:00 Temperature 98.2 F 97.9 F Pulse Rate Pulse Rate [Right Radial] 83 80 Respiratory Rate 20 20 Blood Pressure Blood Pressure [Left Arm] Blood Pressure [Right Arm] 178/84 159/77 O2 Sat by Pulse Oximetry 100 97 Labs: Laboratory Last Values WBC 3.2 X10^3/uL (3.6-10.0) L 12/13/19 06:00 RBC 3.46 X10^6/uL (4.7-6.0) L 12/13/19 06:00 Hgb 10.0 g/dL (13.5-18.0) L 12/13/19 06:00 Hct 29.9 % (42.0-54.0) L 12/13/19 06:00 MCV 86.5 fL (80.0-100.0) 12/13/19 06:00 MCH 28.8 pg (27.0-34.0) 12/13/19 06:00 MCHC 33.3 g/dL (33.0-35.0) 12/13/19 06:00 RDW 16.9 % (11.6-16.5) H 12/13/19 06:00 Plt Count 224 X10^3/uL (150.0-450.0) 12/13/19 06:00 Plt Count Comment Adequate (ADEQUATE) 12/10/19 16:05 MPV 10.2 fL (7.4-11.0) 12/13/19 06:00 Neut % (Auto) 30.8 % (42.0-75.0) L 12/13/19 06:00 Lymph % (Auto) 54.2 % (21.0-51.0) H 12/13/19 06:00 [place] % (Auto) 12.7 % (0.0-13.0) 12/13/19 06:00 Eos % (Auto) 1.2 % (0.9-2.9) 12/13/19 06:00 Baso % (Auto) 1.1 % (0.2-1.0) H 12/13/19 06:00 Neut # (Auto) 1.0 x10^3/uL (2.2-4.8) L 12/13/19 06:00 Lymph # (Auto) 1.7 X10^3/uL (1.3-2.9) 12/13/19 06:00 [place] # (Auto) 0.4 x10^3/uL (0.3-0.8) 12/13/19 06:00 Eos # (Auto) 0.0 x10^3/uL (0.0-0.2) 12/13/19 06:00 Baso # (Auto) 0.0 X10^3/uL (0.0-0.1) 12/13/19 06:00 Absolute Nucleated RBC 0.1 /100WBC 12/13/19 06:00 Total Counted 50 12/10/19 16:05 Neutrophils % (Manual) 34 % (39-76) L 12/10/19 16:05 Lymphocytes % (Manual) 48 % (13-43) H 12/10/19 16:05 Monocytes % (Manual) 18 % (4-9) H 12/10/19 16:05 Plt Morphology Comment Normal (NORMAL) 12/10/19 16:05 RBC Morphology Abnormal (NORMAL) 12/10/19 16:05 Hypochromasia Slight A 12/10/19 16:05 Anisocytosis 1+ A 12/10/19 16:05 Sodium 138 mmol/L (136-145) 12/13/19 06:00 Corrected Sodium 139 mmol/L (136-145) 12/13/19 06:00 Potassium 3.8 mmol/L (3.5-5.1) 12/13/19 06:00 Chloride 104 mmol/L (98-107) 12/13/19 06:00 Carbon Dioxide 24.5 mmol/L (21-32) 12/13/19 06:00 BUN 9 mg/dL (7-18) 12/13/19 06:00 Creatinine 1.22 mg/dL (0.70-1.30) 12/13/19 06:00 Est GFR (MDRD) Af Amer > 60 (>60) 12/13/19 06:00 Est GFR (MDRD) Non-Af > 60 (>60) 12/13/19 06:00 Glucose 145 mg/dL (65-99) H 12/13/19 06:00 POC Glucose (mg/dL) 135 mg/dL (65-99) H 12/13/19 06:13 Calcium 8.7 mg/dL (8.5-10.1) 12/13/19 06:00 Corrected Calcium 9.4 mg/dL (8.5-10.1) 12/11/19 05:50 Total Bilirubin 0.20 mg/dL (0.2-1.0) 12/11/19 05:50 AST 33 Units/L (15-37) 12/11/19 05:50 ALT 44 Units/L (12-78) 12/11/19 05:50 Alkaline Phosphatase 142 Units/L (46-116) H 12/11/19 05:50 Total Protein 8.7 g/dL (6.4-8.2) H 12/11/19 05:50 Albumin 3.1 g/dL (3.4-5.0) L 12/11/19 05:50 Globulin 5.6 g/dL (2.5-4.5) H 12/11/19 05:50 Albumin/Globulin Ratio 0.6 Ratio (1.1-2.1) L 12/11/19 05:50 Vancomycin Trough 15.1 ug/mL (15-20) 12/12/19 20:20 Reason For Visit: CELLULITIS RIGHT ELBOW Discharge Diagnosis All Active Problems (Updated 12/11/19 @ 13:25 by Sonya Bergman) Right elbow pain (Acute) HTN (hypertension) (Acute) Diabetes (Acute) CAD (coronary artery disease) (Acute) Cellulitis (Acute) Plan of Treatment: Continue with present treatment and follow up plan. Pt is to keep follow up appointment as instructed and take medications as ordered. Discharge Medications Discharge Medications: Tetracyclines Adverse Reaction (Verified 12/10/19 15:36) CONTINUE taking the following medications Novolin 70/30 U-100 Insulin 24 unit SUBCUT BID 12/10/19 [History] Novolin R Regular U-100 Insuln 1 sliding scale dose SUBCUT USEASDIRECTD 12/10/19 [History] amitriptyline 50 mg PO QHS 12/10/19 [History] aspirin 81 mg PO DAILY 12/10/19 [History] atorvastatin [Lipitor] 40 mg PO QHS 12/10/19 [History] carvedilol [Coreg] 25 mg PO BID 12/10/19 [History] clopidogrel [Plavix] 75 mg PO DAILY 12/10/19 [History] hydralazine 50 mg PO BID 12/10/19 [History] isosorbide mononitrate 30 mg PO QAM 12/10/19 [History] levalbuterol tartrate [Xopenex HFA] 2 inh INHALATION Q6H 12/10/19 [History] loratadine [Claritin] 10 mg PO DAILY 12/10/19 [History] losartan [Cozaar] 50 mg PO BID 12/10/19 [History] nitroglycerin 0.4 mg SUBLINGUAL Q5M PRN 12/10/19 [History] terazosin 2 mg PO QHS 12/10/19 [History] triamcinolone acetonide 1 applic TOPICAL BID PRN 12/10/19 [History] New Prescriptions clindamycin HCl 300 mg PO BID 7 Days #14 cap 12/13/19 [Rx] doxycycline hyclate 100 mg PO BID 7 Days #14 cap 12/13/19 [Rx] naproxen 500 mg PO BID PRN 5 Days #10 tab 12/13/19 [Rx] triamcinolone acetonide 1 applic TP BID #15 g 12/13/19 [Rx]
[2019-12-13 09:34] VITALS: BP 144/82
== END 2019-12-13 11:35 | DRG 603 ==
LOC: ER 14:59 → MED/SURG 17:51
PROVIDERS: ADMIT Internal Medicine; ATTEND Internal Medicine
DX: B95.62 Methicillin resistant Staphylococcus aureus infection as the cause of diseases classified elsewhere; L03.113 Cellulitis of right upper limb; E11.9 Type 2 diabetes mellitus without complications; I10 Essential (primary) hypertension